=== PATIENT | male | born 1985 | race African-American/Black ===

== ENCOUNTER 2022-09-08 21:20 | Emergency (ER) | payer SELFPAY ==
[2022-09-08 21:30] VITALS: RESP 18; TEMP 98; BMI 23.7
[2022-09-08] MEDS ORDERED: AMPICILLIN NA/SULBACTAM NA 1.5 GM in SODIUM CHLORIDE 100 ML IVPB ONE (23:14)
[2022-09-08] MEDS ORDERED: ACETAMINOPHEN 500 MG TABLET (FP) PO ONE (23:33)
[2022-09-08] MEDS ORDERED: RABIES VACCINE (PCEC)/PF 2.5 UNIT/VIAL IM ONE (23:33)
[2022-09-08] MEDS ORDERED: RABIES IMMUNE GLOBULIN 300 UNITS/1 ML VIAL IM ONE (23:34)
[2022-09-08] MEDS ORDERED: ACETAMINOPHEN 1000 MG/100 ML BAG IVPB ONE (23:35)
[2022-09-08] MEDS ORDERED: ACETAMINOPHEN INJECTION 100 ML IVPB ONE (23:37)
[2022-09-08 23:56] LABS: BASO % 0.8 % (0-2.0); HEMOGLOBIN 13.1 GM/dL (11.7-16.9); MCH 33.5 pg (25.7-33.7); MCHC 33.5 g/dl (32.0-35.9); MEAN PLT VOLUME 6.9 fl (7.5-11.1); MONO % 7.8 % (3.8-10.2); NEUT % 61.4 % (42.8-82.8); PLATELET COUNT 347 10^3/uL (134-434); RDW 12.7 % (11.9-15.9); WHITE BLOOD COUNT 7.4 K/mm3 (4.0-10.0)
[2022-09-09 00:16] LABS: ALBUMIN 4.3 g/dl (3.4-5.0); BLOOD UREA NITROGEN 23.9 mg/dL (7-18); CALCIUM 9.8 mg/dL (8.5-10.1)
[2022-09-09] MEDS ORDERED: DIPHTH,PERTUSS(ACELL),TET 0.5 ML DISP.SYRIN IM ONE ×2 (00:18→00:34)
[2022-09-09 00:19] LABS: CREATININE 0.9 mg/dL (0.55-1.3)
[2022-09-09 00:21] LABS: BILIRUBIN,TOTAL 0.4 mg/dL (0.2-1); TOT PROT 7.7 g/dl (6.4-8.2)
[2022-09-09 01:30] VITALS: BP 116/78; PULSE 95
== END 2022-09-09 01:30 | disposition short-term general hospital (02) ==
LOC: JER 21:20 → JERFT 21:20 → JER 09-09 01:30
PROC: 3E03329 Introduction of Other Anti-infective into Peripheral Vein, Percutaneous Approach (ICD-10-PCS; principal; 2022-09-08)
PROC: 3E0234Z Introduction of Serum, Toxoid and Vaccine into Muscle, Percutaneous Approach (ICD-10-PCS; 2022-09-08)
PROC: 3E033NZ Introduction of Analgesics, Hypnotics, Sedatives into Peripheral Vein, Percutaneous Approach (ICD-10-PCS; 2022-09-08)
PROC: 3E0234Z Introduction of Serum, Toxoid and Vaccine into Muscle, Percutaneous Approach (ICD-10-PCS; 2022-09-09)
DX: S01.25XA Open bite of nose, initial encounter (principal); W54.0XXA Bitten by dog, initial encounter; Y92.9 Unspecified place or not applicable
CPT/HCPCS: 36415; 70150-TC-FY; 80053; 85025; 90375; 90675; 90715; 99284-25; C9803-CS; U0003; U0005

== ENCOUNTER 2022-09-23 14:55 | Emergency (ER) | payer SELFPAY ==
[2022-09-23 15:21] VITALS: BP 117/67; PULSE 56; RESP 18; TEMP 98; BMI 25.1
[2022-09-23] MEDS ORDERED: RABIES VACCINE (PCEC)/PF 2.5 UNIT/VIAL IM ONE ×2 (15:42→15:45)
== END 2022-09-23 16:05 | disposition home or self-care (01) ==
LOC: JERFT 14:55
PROC: 3E023GC Introduction of Other Therapeutic Substance into Muscle, Percutaneous Approach (ICD-10-PCS; principal; 2022-09-23)
DX: Z20.3 Contact with and (suspected) exposure to rabies (principal); Z23 Encounter for immunization
CPT/HCPCS: 90675; 99283-25